=== PATIENT | male | born 1995 | race Caucasian/White ===

== ENCOUNTER 2025-03-31 13:51 | Emergency (ER) | payer OTHER, SELFPAY ==
--- OUTSIDE RECORDS SUMMARY | 2025-03-31 13:53 | XMS_ITS | Clinical Summary ---
Author Organization [facility] Address [address], [facility] [address] [place] [address] Phone Care Team Providers Care Cash Grain Grower Name Role Phone Iliana Maldonado [place] Primary Care Provider + Allergies No known active allergies Medications busPIRone (BUSPAR) 15 MG TabletIndication s:Anxiety Take 1 Tablet by mouth 2 times daily. 60 Tablet 1 07/12/2023 Active Active Problems No known active problems Immunizations Immunization Administration Dates Next Due PUR FLU 3+ YRS PRES FREE QUAD IM 08/02/2016 Social History Tobacco Use Types Packs/Day Years Used Date Smoking Tobacco: Every Day Cigarettes Smokeless Tobacco: Never Tobacco Cessation:Ready to Q uit: Not Asked; Counseling Given: Not Answered Alcohol Use Standard Drinks/Week Comments Yes 0 (1 standard drink = 0.6 oz pur e alcohol) occasionally PHQ-2 Answer Date Recorded Total Score - Questions 1-9 0 06/27 Sexually Active Control Partners Comments Yes Oral Contraceptive Female Partner u ses control pills Sex and Gender Information Value Date Recorded Sex Assigned at Not on file Legal Sex Male 12:23 AM CDT Gender Identity Not on file Sexual Orientation Not on file Last Filed Vital Signs Vital Sign Reading Time Taken Comments Blood Pressure 120/82 07/12/2023 10:34 AM MAINFRAME ANALYST Pulse 83 07/12/2023 10:34 AM MAINFRAME ANALYST Temperature 37.2 C (99 F) 07/12/2023 10:34 AM MAINFRAME ANALYST Respiratory Rate 18 07/12/2023 10:34 AM MAINFRAME ANALYST Oxygen Saturation 99% 07/12/2023 10:34 AM MAINFRAME ANALYST Inhaled Oxygen Concentration - - Weight 82.8 kg (182 lb 9.6 oz) 07/12/2023 10:34 AM MAINFRAME ANALYST Height 172.7 cm (5' 8) 07/12/2023 10:34 AM MAINFRAME ANALYST Body Mass Index 27.76 07/12/2023 10:34 AM MAINFRAME ANALYST Plan of Treatment Health Maintenance Due Date Last Done Comments Hepatitis C Virus (HCV) Screening 1995 Human Papillomavirus (HPV) Immunization (3 - Male 3-dose series) 06/09/2012 02/16/2012, 12/09/2011 Pneumococcal Immunization Combined (1 of 2 - PCV) 2014 Influenza Immunization (#1) 2025 08/02/2016 SARS-COV-2 Immunization (1 - season) 2025 Respiratory Syncytial Virus (RSV) Immunization (Adult) (1 - 1-dose 75+ series) 2070 Hepatitis B Immunization Completed 996, 1995, 1995 DTaP/Tdap/Td Immunization Discontinued 2007, 02/09/2000, 02/15/1997, Additional history exists TdaP Immunization Completed 10/03/2007 Meningococcal Immunization (ACWY) Completed 12/09/2011 Rotavirus Immunization Aged Out No lo nger eligible based on patient's age to complete this topic Care Teams Cash Grain Grower Relationship Specialty Start Date End Date Iliana Maldonado [address] [place] [address] PCP - General Physician Threading Machine Operator 07/25/20
--- OUTSIDE RECORDS SUMMARY | 2025-03-31 13:53 | XMS_ITS | Clinical Summary ---
Author Organization [facility] Address [address] [place] [address] Care Team Providers Care Circulation Clerk Name Role Phone Unavailable Primary Care Provider Unavailabl e Source Comments [facility],non-owned Affiliates and Associated Physician Practices is amultiple site organization consisting of ambulatory clinics and hospital sitesin [place], [place], [place] and [place]. This disclosure is being madepursuant to the Care Everywhere program and may not contain all information available regarding this patient. 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 Gender Identity Not on file Sexual Orientation Not on file Plan of Treatment Health Maintenance Due Date Last Done Comments HIV SCREENING 2010 HEPATITIS C SCREENING 01/17/2013 DTAP/TDAP/TD VACCINES (1 - Tdap) 2014 HEPATITIS B VACCINE (1 of 3 - 19+ 3-dose series) 2014 HPV VACCINE (1 - 3-dose SCDM series) 2022 DEPRESSION SCREENING 06/27/2024 COVID-19 VACCINE (1 - 2023-2 5 season) 2025 INFLUENZA VACCINE (#1) 2025 ZOSTER VACCINE (1 of 2) 2045 HIB VACCINE Aged Out No longer eligi ble based on patient's age to complete this topic MENINGOCOCCAL (Group B) VACC INE SHARED DECISION-MAKING Aged Out No longer eligibl e based on patient's age to complete this topic MENINGOCOCCAL GROUPS A/C/Y/W VACCINE Aged Out No longer eligible b ased on patient's age to complete this topic PNEUMOCOCCAL VACCINE Aged Out No long er eligible based on patient's age to complete this topic Insurance [employer]
--- OUTSIDE RECORDS SUMMARY | 2025-03-31 13:53 | XMS_ITS | Encounter Summary ---
Author Organization [facility] Address [address] [place] [address] Phone Care Team Providers Care Store Grocery Merchandiser Name Role Phone Iliana Maldonado Primary Care Provider + Reason for Visit * Reason Comments Medication Refill Encounter Details Date Type Department Care Team ([facility] Contact Info) Description 09/22/[address] [facility] - [facility] [address] [place] [address] Iliana Maldonado [address] [place] [address] Medication Refill Social History Tobacco Use Types Packs/Day Years Used Date Smoking Tobacco: Every Day Cigarettes Smokeless Tobacco: Never Alcohol Use Standard Drinks/Week Comments Yes 0 (1 standard drink = 0.6 oz pur e alcohol) occasionally Sexually Active Control Partners Comments Yes Oral Contraceptive Female Partner u ses control pills Sex and Gender Information Value Date Recorded Sex Assigned at Not on file Legal Sex Male 12:23 AM CDT Gender Identity Not on file Sexual Orientation Not on file documented as of this encounter Miscellaneous Notes * Telephone Encounter - Leilani Norton RN - 09/23/2020 7:54 AM CDT Routed to PCP duplicate documented in this encounter Plan of Treatment Not on file documented as of this encounter Visit Diagnoses Not on filedocumented in this encounter Additional Health Concerns Assessment Noted Time PHQ-9 Depression Total Score: 20 017 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
[2025-03-31 14:04] VITALS: BP 130/92; PULSE 97; RESP 16; TEMP 37; O2SAT 99
--- NOTE | 2025-03-31 14:45 | ED.MALEGU ---
HPI - Male Genitourinary General Chief complaint: Urogenital-Male Stated complaint: STD Exposure Time Seen by Provider: 03/31/25 14:30 Source: patient and RN notes reviewed Mode of arrival: ambulatory Limitations: no limitations History of Present Illness HPI Narrative: 30-year-old male presents Express Care complaining of exposure to STD. Patient recent unprotected sex with an individual who contact him and told him that there positive for Trichomonas. Patient denies any symptoms, denies any discharge, testicular pain or swelling, fevers. Related Data Home Medications ?Medication ?Instructions ?Recorded ?Confirmed ?Last Taken ?Type benztropine 1 mg tablet mg 03/31/25 Unknown History bupropion HCl 150 mg 24 hr tablet, mg PO 03/31/25 Unknown History extended release gabapentin 300 mg capsule mg 03/31/25 Unknown History haloperidol 5 mg tablet mg 03/31/25 Unknown History hydroxyzine HCl 50 mg tablet mg 03/31/25 Unknown History mirtazapine 15 mg tablet mg 03/31/25 Unknown History naltrexone 50 mg tablet mg 03/31/25 Unknown History propranolol 20 mg tablet mg 03/31/25 Unknown History Allergies Allergy/AdvReac Type Severity Reaction Status Date / Time No Known Allergies Allergy Unverified 09/26/15 11:23 Review of Systems Review of Systems: CONSTITUTIONAL: Denies fever, chills, or sweats. EYES: Denies visual changes, redness, or discharge. ENT: Denies rhinorrhea, congestion, sore throat, or otalgia. CARDIOVASCULAR: Denies chest pain, palpitations, or edema. RESPIRATORY: Denies cough or dyspnea. GASTROINTESTINAL: Denies abdominal pain, nausea, vomiting, or diarrhea. GENITOURINARY: Denies dysuria, penile discharge, painful erection, testicle pain, scrotal pain, scrotal swelling comes testicle swelling, or hematuria. SKIN: Denies rash or itching. MUSCULOSKELETAL: Denies back pain, joint pain, or myalgia. NEUROLOGIC: Denies headache, numbness, or weakness. PSYCHIATRIC: Denies anxiety or depression. All other systems reviewed are negative, except as documented in HPI. PMFSH Comments At the time of my signature, I reviewed and agree with the nursing past medical, surgical, social, and family history. There is no relevant family history pertinent to the patient complaint. Exam Narrative: GENERAL: This is a well-nourished, well-developed adult, in no apparent distress. They are non ill-appearing, nontoxic appearing. HEAD: normocephalic, atraumatic. EYES: Sclera clear/white. Conjunctiva normal. Vision is grossly intact. Extraocular movements intact EARS: External ears normal, Hearing grossly intact. NOSE: External nose normal THROAT: Mucous membranes moist, NECK: Neck supple, CARDIOVASCULAR: Regular rate and rhythm RESPIRATORY: Respiratory rate normal, respiratory effort nonlabored, no respiratory distress GENITOURINARY: Patient declined genital SKIN: warm, Dry, intact with no suspicious lesions or rash, good texture and turgor. NEURO: awake, alert, and oriented to person, place and time. There were no obvious focal neurologic abnormalities. EXTREMITIES: No joint tenderness, effusion, or edema noted. Course Course Emergency Course: Portions of this record may have been created with voice recognition software Level of Care: Express Care Visit Vital Signs Vital signs: Vital Signs Temperature 98.6 F 03/31/25 14:04 Pulse Rate 97 03/31/25 14:04 Respiratory Rate 16 03/31/25 14:04 Blood Pressure 130/92 H 03/31/25 14:04 Pulse Oximetry 99 03/31/25 14:04 Oxygen Delivery Room Air 03/31/25 14:04 Temperature 98.6 F 03/31/25 14:04 Pulse Rate 97 03/31/25 14:04 Respiratory Rate 16 03/31/25 14:04 Blood Pressure 130/92 H 03/31/25 14:04 Pulse Oximetry 99 03/31/25 14:04 Oxygen Delivery Room Air 03/31/25 14:04 Reviewed MDM - Male Genitourinary MDM Narrative Medical decision making narrative: Patient has known exposure Trichomonas. Urine Trichomonas, chlamydia, gonorrhea are pending. Patient liquid start treatment for Trichomonas will wait treatment prior to culture results. Prescription Flagyl sent to patient's pharmacy. Ice patient remain abstinent next 10 days or until he has completed any additional treatment if anything else is positive. Discussed physical exam findings. Advised supportive measures and signs/symptoms to go to the ER. Pt is appropriate for outpt treatment and f/u. Differential Diagnosis Differential diagnosis: Likely urinary tract infection, urethritis, epididymitis and other (STD) Critical Care Time Critical Care Time Critical Care Time: No Discharge Plan Discharge Clinical Impression: Potential exposure to STD Patient Disposition: Home Condition: Stable Instructions: Antibiotic Form, Trichomoniasis (ED) Additional Instructions: ?Your urine sample has been sent off to test for gonorrhea, chlamydia, and trichomonas infections. ?These tests can take up to 1-3 days to come back. You Will be notified the results once they have resulted. Please remain abstinent until you know your results or have completed full treatment for an STD and a been abstinent for 10 days. Take Flagyl as directed, it is a 1 time dose, do not drink alcohol on it or it may cause severe nausea and vomiting or make you very ill. Follow-up with PCP in 3-5 days. If your symptoms worsen, you developed fever, abdominal pain, nausea, vomiting, or any other concerns please go to the ER immediately. Patient Language: Macanese Prescriptions: New metronidazole 500 mg tablet 2,000 mg PO ONCE 1 Days Qty: 4 0RF No Action haloperidol 5 mg tablet naltrexone 50 mg tablet hydroxyzine HCl 50 mg tablet benztropine 1 mg tablet gabapentin 300 mg capsule mirtazapine 15 mg tablet propranolol 20 mg tablet bupropion HCl 150 mg tablet extended release 24 hr PO Follow-up/Referrals: UNKNOWN,DOCTOR [Primary Care Provider] Time of Disposition: 14:44
[2025-03-31 19:38] LABS: Trichomonas Vag PCR NOT DETECTED (NOT DETECTE)
== END 2025-03-31 14:53 | disposition home or self-care (01) ==
DX: Z11.3 Encounter for screening for infections with a predominantly sexual mode of transmission (principal); F31.9 Bipolar disorder, unspecified; F41.9 Anxiety disorder, unspecified
CPT/HCPCS: 87491; 87591; 87661; 99203; G0463